=== PATIENT | male | born 1995 | race Caucasian/White ===

== ENCOUNTER 2016-05-14 17:38 | Emergency (ER) | payer OTHER ==
[~2016-05-14] VITALS: Ht 167.6 cm; Wt 59.0 kg
[~2016-05-14 17:38] MED LIST: ACULAR 3 ML3 M1 OPH; ADDERALL5 MG; ALBUTEROL0.09 MG/A2 IH; FLEXERIL10 MG PO; MOTRIN400 MG PO; MOTRIN800 MG PO; NKHM; PEN-VK500 MG PO; PREDNISONE20 MG PO; Tobrex Ophth S2.5 ML OPH; VALIUM2 MG PO; VICODIN 5/500 505 MG PO; ZITHROMAX Z PA250 MG PO; ZOFRAN ODT4 MG SL
== END 2016-05-14 18:47 | disposition home or self-care (01) ==
LOC: ED 17:38
DX: S61.212A Laceration without foreign body of right middle finger without damage to nail, initial encounter (principal); R03.0 Elevated blood-pressure reading, without diagnosis of hypertension; F17.200 Nicotine dependence, unspecified, uncomplicated; Z88.0 Allergy status to penicillin; W26.0XXA Contact with knife, initial encounter; Y93.9 Activity, unspecified; Y92.9 Unspecified place or not applicable; Y99.9 Unspecified external cause status

== ENCOUNTER 2017-01-29 22:57 | Emergency (ER) | payer OTHER ==
[~2017-01-29] VITALS: Ht 167.6 cm; Wt 56.7 kg
== END 2017-01-29 23:50 | disposition home or self-care (01) ==
LOC: ED 22:57
DX: S90.31XA Contusion of right foot, initial encounter (principal); F17.200 Nicotine dependence, unspecified, uncomplicated; Z88.0 Allergy status to penicillin; W20.8XXA Other cause of strike by thrown, projected or falling object, initial encounter; Y93.89 Activity, other specified; Y92.89 Other specified places as the place of occurrence of the external cause; Y99.9 Unspecified external cause status

== ENCOUNTER 2017-09-06 18:23 | Emergency (ER) | payer OTHER ==
[~2017-09-06] VITALS: Ht 167.6 cm; Wt 56.7 kg
[2017-09-06] MEDS ORDERED: Motrin,Rufen800 MG PO (20:17)
== END 2017-09-06 20:24 | disposition home or self-care (01) ==
LOC: ED 18:23
DX: S90.212A Contusion of left great toe with damage to nail, initial encounter (principal); F17.200 Nicotine dependence, unspecified, uncomplicated; Z88.0 Allergy status to penicillin; W20.8XXA Other cause of strike by thrown, projected or falling object, initial encounter; Y93.89 Activity, other specified; Y92.89 Other specified places as the place of occurrence of the external cause; Y99.8 Other external cause status

== ENCOUNTER 2017-11-09 03:34 | Emergency (ER) | payer OTHER ==
[~2017-11-09] VITALS: Ht 167.6 cm; Wt 56.7 kg
[~2017-11-09 03:34] MED LIST changes: +Motrin,Rufen800 MG PO
[2018-01-10] MEDS ORDERED: ZITHROMAX250 MG PO (12:31)
[2018-01-10] MEDS ORDERED: FLONASE ALLERG9.9 ML NAS (12:31)
== END 2017-11-09 04:53 | disposition home or self-care (01) ==
LOC: ED 03:34
DX: T15.02XA Foreign body in cornea, left eye, initial encounter (principal); Z88.0 Allergy status to penicillin; X58.XXXA Exposure to other specified factors, initial encounter; Y93.89 Activity, other specified; Y92.89 Other specified places as the place of occurrence of the external cause; Y99.8 Other external cause status

== ENCOUNTER 2023-08-26 11:07 | Emergency (ER) | payer OTHER ==
[~2023-08-26] VITALS: Ht 170.1 cm; Wt 63.5 kg
[~2023-08-26 11:07] MED LIST changes: +FLONASE ALLERG9.9 ML NAS; +ZITHROMAX250 MG PO
[2023-08-26] MEDS ORDERED: HYDROCODONE-AC1 EAC1 PO (11:40)
[2023-08-26] MEDS ORDERED: VIBRAMYCIN100 MG PO (11:40)
[2023-08-26] MEDS ORDERED: Acetaminophen/Hydrocodone 5 MG/325 MG TABLET PO ONE (11:45)
[2023-08-26] MEDS ORDERED: Doxycycline Hyclate 100 MG CAP PO ONE (11:45)
== END 2023-08-26 12:00 | disposition home or self-care (01) ==
LOC: ED 11:07
DX: L05.01 Pilonidal cyst with abscess (principal); F90.9 Attention-deficit hyperactivity disorder, unspecified type; F32.A Depression, unspecified; Z88.0 Allergy status to penicillin